=== PATIENT | male | born 1940 | race Caucasian/White ===

== ENCOUNTER 2017-10-09 07:20 | Inpatient (IN) ==
[2017-10-09] MEDS ORDERED: DEXTROSE 50% 25 GM/50 ML SYRINGE IV ONE (07:26)
[2017-10-09 07:50] LABS: Eosinophils # 0.2 10*3/uL (0.0-0.87); Eosinophils % 4.3 % (0.00-10.9); Hematocrit 36.9 VOL% (42.0-52.0); Hemoglobin 11.1 GM/DL (14.0-18.0); Immature Granulocytes % 0.8 %; Immature Granulocytes Absolute 0.04 #; Lymphocytes # 0.5 10*3/uL (1.4-4.0); Lymphocytes % 9.8 % (21.2-54.2); Mean Corpuscular HGB Conc 30.1 GM/DL (32-36); Mean Corpuscular Hemoglobin 26 PG (27-34); Mean Corpuscular Volume 86.2 FL (87-102); Monocytes # 0.3 10*3/uL (0.11-0.8); Monocytes % 6.3 % (1.7-12.7); Neutrophils # 3.9 10*3/uL (1.4-7.4); Neutrophils % 78.8 % (38.7-73.9); Platelet Count 190 T/CUMM (130-400); Red Blood Count 4.28 MC/CUMM (3.8-5.5); Red Cell Distribution Width 21.7 % (9.3-17.3); White Blood Count 4.9 T/CUMM (4-12)
[2017-10-09 08:02] LABS: Apearance,Urine CLEAR (Clear); Bilirubin,Urine Negative (Negative); Blood, Urine Negative (Negative); Glucose,Urine (UA) Negative (Negative); Hyaline Casts,Urine 1 /LPF (0-3); Ketones,Urine Negative (Negative); Mucus,Urine Occasional /LPF (Occasional); Nitrite,Urine Negative (Negative); Protein,Urine Negative; RBC,Urine <1 /HPF (0-4); Urine Color Straw (Yellow); Urine Specific Gravity 1.004 (1.001-1.035); Urine Urobilinogen < 2.0 EU/DL (0.2-1.0); WBC,Urine <1 /HPF (0-6)
[2017-10-09 08:30] LABS: Alanine Aminotransferase 16 U/L (16-61); Albumin 3.2 G/DL (3.4-5.0); Alkaline Phosphatase 80 U/L (45-117); Aspartate Amino Transferase 18 U/L (0-37); Bilirubin,Total < 0.39 MG/DL (0.2-1.0); Blood Urea Nitrogen 24 MG/DL (7-18); Calcium 8.2 MG/DL (8.5-10.1); Glucose 63 MG/DL (74-106); Osmolality,Calculated 282.3 MOS/KG (273-304); Potassium 3.7 MMOL/L (3.5-5.1); Sodium 141 MMOL/L (136-145); Total Protein 5.6 G/DL (6.4-8.3)
[2017-10-09 08:34] LABS: Ammonia < 10 UMOL/L (11-32)
[2017-10-09] MEDS ORDERED: ONDANSETRON 4 MG/2 ML VIAL IV PRN (11:14)
[2017-10-09] MEDS: DEXTROSE 5% NACL 0.22% 1,000 ML IV SCH (18:46)
[2017-10-09] MEDS: levETIRAcetam 500 MG TABLET PO SCH (21:26)
[2017-10-09] MEDS: MORPHINE 2 MG/1 ML SYRINGE IV PRN (21:26)
[2017-10-10] MEDS ORDERED: HALOPERIDOL 5 MG/ML AMP IV ONE ×2 (01:00→03:30)
[2017-10-10] MEDS: MORPHINE 2 MG/1 ML SYRINGE IV PRN ×2 (01:12→08:16)
[2017-10-10] MEDS: DEXTROSE 5% NACL 0.22% 1,000 ML IV SCH (04:04)
[2017-10-10] MEDS ORDERED: HALOPERIDOL 5 MG/ML AMP IV PRN (05:51)
[2017-10-10 06:12] LABS: Eosinophils # 0.1 10*3/uL (0.0-0.87); Eosinophils % 2.3 % (0.00-10.9); Hematocrit 40.3 VOL% (42.0-52.0); Hemoglobin 12.3 GM/DL (14.0-18.0); Immature Granulocytes % 0.6 %; Immature Granulocytes Absolute 0.03 #; Lymphocytes # 0.7 10*3/uL (1.4-4.0); Lymphocytes % 13.6 % (21.2-54.2); Mean Corpuscular HGB Conc 30.5 GM/DL (32-36); Mean Corpuscular Hemoglobin 26 PG (27-34); Mean Corpuscular Volume 83.6 FL (87-102); Mean Platelet Volume 10.5 FL (9.6-12.0); Monocytes # 0.4 10*3/uL (0.11-0.8); Monocytes % 7.6 % (1.7-12.7); Neutrophils % 75.9 % (38.7-73.9); Platelet Count 197 T/CUMM (130-400); Red Blood Count 4.82 MC/CUMM (3.8-5.5); Red Cell Distribution Width 21.4 % (9.3-17.3); White Blood Count 5.2 T/CUMM (4-12)
[2017-10-10 06:52] LABS: Calcium 8.7 MG/DL (8.5-10.1); Osmolality,Calculated 277.7 MOS/KG (273-304); Thyroid Stimulating Hormone 0.556 uIU/ml (0.358-3.74)
[2017-10-10] MEDS ORDERED: ZIPRASIDONE 20 MG/1 ML VIAL IM PRN (09:00)
[2017-10-10] MEDS: levETIRAcetam 500 MG TABLET PO SCH ×2 (10:47→21:57)
[2017-10-10] MEDS ORDERED: hydrALAZINE 20 MG/1 ML VIAL IV PRN (12:11)
[2017-10-10] MEDS ORDERED: HYDROCORTISONE 25 MG SUPP RECTAL PRN (13:45)
[2017-10-10] MEDS ORDERED: NON-FORMULARY MEDICATION (Fluticasone/Vilanterol [Breo Ellipta 200-25 Mcg Inh] 1 PUFF) INH SCH (13:45)
[2017-10-10] MEDS ORDERED: POLYVINYL ALCOHOL 1.4% OPH SOLN 15 ML BOTTLE BOTH EYES PRN (13:45)
[2017-10-10] MEDS: CYANOCOBALAMIN 500 MCG TABLET PO SCH (13:50)
[2017-10-10] MEDS: FINASTERIDE 5 MG TABLET PO SCH (13:50)
[2017-10-10] MEDS: POLYETHYLENE GLYCOL POWDER 17 GM PACK PO SCH ×2 (13:50→21:57)
[2017-10-10] MEDS: fentaNYL 50 MCG/HR PATCH TRANSDERM SCH (13:50)
[2017-10-10] MEDS: TAMSULOSIN 0.4 MG CAPSULE PO SCH ×2 (13:50→21:57)
[2017-10-10] MEDS: FERROUS SULFATE 325 MG TABLET PO SCH ×2 (13:50→21:57)
[2017-10-10] MEDS: FUROSEMIDE 80 MG TABLET PO SCH (13:50)
[2017-10-10] MEDS: cycloSPORINE OPH EMUL 1 VIAL BOTH EYES SCH (13:50)
[2017-10-10] MEDS ORDERED: ALBUTEROL/IPRATROPIUM 3 ML NEB RESP TX PRN ×2 (14:20→14:50)
[2017-10-10] MEDS ORDERED: FUROSEMIDE 40 MG/4 ML VIAL IV ONE ×2 (14:56→18:51)
[2017-10-10] MEDS ORDERED: PROPOFOL 1,000 MG/100 ML BOTTLE IV ONE ×2 (18:13→18:15)
[2017-10-10] MEDS: PROPOFOL 1,000 MG/100 ML BOTTLE IV SCH (19:00)
[2017-10-10] MEDS ORDERED: ALBUTEROL/IPRATROPIUM 3 ML NEB RESP TX SCH (19:00)
[2017-10-10 19:18] LABS: ABG Base Excess 3.2 MMOL/L (-2.5-2.5); ABG HCO3 27.3 MMOL/L (20-26); ABG Oxygen Saturation 99.8 % (95-100); ABG PCO2 51.8 MM HG (35-48); ABG PH 7.365 (7.35-7.45); ABG TCO2 26.4 MMOL/L (23-27); Allen Test Positive; Pt O2 Delivery Device Ventilator
[2017-10-10] MEDS: ALBUTEROL/IPRATROPIUM 3 ML NEB RESP TX SCH (19:19)
[2017-10-10] MEDS ORDERED: FAMOTIDINE 20 MG TABLET PO SCH (21:00)
[2017-10-10] MEDS: FAMOTIDINE 20 MG/2 ML VIAL IV SCH (21:56)
[2017-10-10] MEDS: DONEPEZIL 10 MG TABLET PO SCH (21:57)
[2017-10-10] MEDS: MONTELUKAST 10 MG TABLET PO SCH (21:57)
[2017-10-10] MEDS: MEMANTINE 5 MG TABLET PO SCH (21:57)
[2017-10-10] MEDS: NORTRIPTYLINE 25 MG CAPSULE PO SCH (21:57)
[2017-10-10] MEDS: QUEtiapine 25 MG TABLET PO SCH (21:57)
[2017-10-10] MEDS: HydrOXYzine PAMOATE 25 MG CAPSULE PO SCH (22:03)
[2017-10-11] MEDS: ALBUTEROL/IPRATROPIUM 3 ML NEB RESP TX SCH ×4 (00:26→19:07)
[2017-10-11] MEDS: DEXTROSE 5% NACL 0.22% 1,000 ML IV SCH ×2 (00:46→13:17)
[2017-10-11] MEDS: GABAPENTIN 400 MG CAPSULE PO SCH ×5 (00:47→21:20)
[2017-10-11] MEDS: NORTRIPTYLINE 10 MG CAPSULE PO SCH ×2 (00:49→21:20)
[2017-10-11] MEDS: cycloSPORINE OPH EMUL 1 VIAL BOTH EYES SCH ×3 (00:50→21:20)
[2017-10-11] MEDS: LATANOPROST 0.005% OPH SOLN 2.5 ML BOTTLE BOTH EYES SCH ×2 (00:50→21:21)
[2017-10-11] MEDS: PROPOFOL 1,000 MG/100 ML BOTTLE IV SCH ×3 (02:00→17:55)
[2017-10-11] MEDS: BENZONATATE 100 MG CAPSULE PO SCH ×5 (02:36→21:20)
[2017-10-11] MEDS: MORPHINE 2 MG/1 ML SYRINGE IV PRN (02:39)
[2017-10-11 03:46] LABS: ABG Base Excess 3.1 MMOL/L (-2.5-2.5); ABG HCO3 27.4 MMOL/L (20-26); ABG PCO2 40.9 MM HG (35-48); ABG PH 7.444 (7.35-7.45); ABG PO2 218.9 MM HG (80-95); ABG TCO2 28.7 MMOL/L (23-27); Pt O2 Delivery Device Ventilator
[2017-10-11] MEDS: FAMOTIDINE 20 MG/2 ML VIAL IV SCH ×2 (06:45→17:56)
[2017-10-11 07:11] LABS: ABG Oxygen Saturation 99.5 % (95-100)
[2017-10-11] MEDS ORDERED: DEXTROSE 50% 25 GM/50 ML VIAL IV ONE (07:14)
[2017-10-11] MEDS ORDERED: DEXTROSE 50% 25 GM/50 ML VIAL IV PRN (07:20)
[2017-10-11] MEDS ORDERED: CYANOCOBALAMIN 1000 MCG/1 ML VIAL IM SCH (09:00)
[2017-10-11] MEDS ORDERED: PANTOPRAZOLE 40 MG TABLET PO SCH (09:00)
[2017-10-11] MEDS: POLYETHYLENE GLYCOL POWDER 17 GM PACK PO SCH ×2 (10:18→21:20)
[2017-10-11] MEDS: FERROUS SULFATE 325 MG TABLET PO SCH ×2 (10:19→21:20)
[2017-10-11] MEDS: TAMSULOSIN 0.4 MG CAPSULE PO SCH ×2 (10:19→21:20)
[2017-10-11] MEDS: CYANOCOBALAMIN 500 MCG TABLET PO SCH (10:19)
[2017-10-11] MEDS: FINASTERIDE 5 MG TABLET PO SCH (10:20)
[2017-10-11] MEDS: QUEtiapine 25 MG TABLET PO SCH ×2 (10:20→21:20)
[2017-10-11] MEDS: FUROSEMIDE 80 MG TABLET PO SCH (10:20)
[2017-10-11] MEDS: levETIRAcetam 500 MG TABLET PO SCH ×2 (10:21→21:20)
[2017-10-11] MEDS: MEMANTINE 5 MG TABLET PO SCH ×2 (10:21→21:20)
[2017-10-11] MEDS ORDERED: ZINC OXIDE PASTE 113 GM TUBE TOP PRN (15:31)
[2017-10-11] MEDS: NOREPINEPHRINE 8 MG in SODIUM CHLORIDE 0.9% 242 ML IV SCH (15:41)
[2017-10-11] MEDS: NORTRIPTYLINE 25 MG CAPSULE PO SCH (21:20)
[2017-10-11] MEDS: MONTELUKAST 10 MG TABLET PO SCH (21:20)
[2017-10-11] MEDS: DONEPEZIL 10 MG TABLET PO SCH (21:20)
[2017-10-11] MEDS: HydrOXYzine PAMOATE 25 MG CAPSULE PO SCH (21:21)
[2017-10-12] MEDS: ALBUTEROL/IPRATROPIUM 3 ML NEB RESP TX SCH ×4 (00:34→19:59)
[2017-10-12] MEDS: PROPOFOL 1,000 MG/100 ML BOTTLE IV SCH ×6 (01:00→22:01)
[2017-10-12 04:21] LABS: ABG Base Excess 6.3 MMOL/L (-2.5-2.5); ABG HCO3 30.2 MMOL/L (20-26); ABG Oxygen Saturation 99.6 % (95-100); ABG PCO2 36.9 MM HG (35-48); ABG PH 7.512 (7.35-7.45); ABG TCO2 26.3 MMOL/L (23-27); Allen Test Positive; Pt O2 Delivery Device Ventilator
[2017-10-12] MEDS: DEXTROSE 5% NACL 0.22% 1,000 ML IV SCH ×3 (05:54→19:26)
[2017-10-12] MEDS: FAMOTIDINE 20 MG/2 ML VIAL IV SCH ×2 (06:14→21:48)
[2017-10-12 06:22] LABS: Eosinophils # 0.1 10*3/uL (0.0-0.87); Eosinophils % 0.6 % (0.00-10.9); Hematocrit 34.9 VOL% (42.0-52.0); Hemoglobin 11.3 GM/DL (14.0-18.0); Immature Granulocytes % 0.5 %; Immature Granulocytes Absolute 0.04 #; Lymphocytes # 0.6 10*3/uL (1.4-4.0); Lymphocytes % 7.3 % (21.2-54.2); Mean Corpuscular HGB Conc 32.4 GM/DL (32-36); Mean Corpuscular Hemoglobin 26 PG (27-34); Mean Corpuscular Volume 80.8 FL (87-102); Mean Platelet Volume 11.1 FL (9.6-12.0); Monocytes # 0.7 10*3/uL (0.11-0.8); Monocytes % 8.3 % (1.7-12.7); Neutrophils # 6.5 10*3/uL (1.4-7.4); Neutrophils % 83.3 % (38.7-73.9); Platelet Count 153 T/CUMM (130-400); Red Blood Count 4.32 MC/CUMM (3.8-5.5); Red Cell Distribution Width 20.9 % (9.3-17.3); White Blood Count 7.8 T/CUMM (4-12)
[2017-10-12 06:54] LABS: Calcium 8.5 MG/DL (8.5-10.1); Osmolality,Calculated 278.7 MOS/KG (273-304); Potassium 3.7 MMOL/L (3.5-5.1)
[2017-10-12 06:55] LABS: Albumin 2.8 G/DL (3.4-5.0); Bilirubin,Total 1.1 MG/DL (0.2-1.0); Calcium 8.4 MG/DL (8.5-10.1); Osmolality,Calculated 280.5 MOS/KG (273-304); Potassium 3.7 MMOL/L (3.5-5.1); Total Protein 5.3 G/DL (6.4-8.3)
[2017-10-12] MEDS: FUROSEMIDE 80 MG TABLET PO SCH (08:39)
[2017-10-12] MEDS: METHOCARBAMOL 500 MG TABLET PO PRN ×2 (08:39→14:54)
[2017-10-12] MEDS: MECLIZINE 25 MG TABLET PO PRN (08:39)
[2017-10-12] MEDS: CYANOCOBALAMIN 500 MCG TABLET PO SCH (08:39)
[2017-10-12] MEDS: QUEtiapine 25 MG TABLET PO SCH ×2 (08:40→21:46)
[2017-10-12] MEDS: BENZONATATE 100 MG CAPSULE PO SCH ×3 (08:41→21:45)
[2017-10-12] MEDS: GABAPENTIN 400 MG CAPSULE PO SCH ×3 (08:41→21:45)
[2017-10-12] MEDS: MEMANTINE 5 MG TABLET PO SCH ×2 (08:41→21:46)
[2017-10-12] MEDS: levETIRAcetam 500 MG TABLET PO SCH ×2 (08:41→21:45)
[2017-10-12] MEDS: FINASTERIDE 5 MG TABLET PO SCH (08:41)
[2017-10-12] MEDS: FERROUS SULFATE 325 MG TABLET PO SCH ×2 (08:41→21:46)
[2017-10-12] MEDS: TAMSULOSIN 0.4 MG CAPSULE PO SCH ×2 (08:42→21:46)
[2017-10-12] MEDS ORDERED: ASCORBIC ACID 500 MG TABLET PO SCH (14:00)
[2017-10-12] MEDS: cycloSPORINE OPH EMUL 1 VIAL BOTH EYES SCH ×2 (14:20→21:48)
[2017-10-12] MEDS: POLYETHYLENE GLYCOL POWDER 17 GM PACK PO SCH ×2 (14:20→21:52)
[2017-10-12] MEDS ORDERED: DILTIAZEM 60 MG TABLET PO SCH (15:00)
[2017-10-12] MEDS: fentaNYL 50 MCG/HR PATCH TRANSDERM SCH (15:03)
[2017-10-12] MEDS: NOREPINEPHRINE 8 MG in SODIUM CHLORIDE 0.9% 242 ML IV SCH ×2 (19:19→21:28)
[2017-10-12] MEDS: DONEPEZIL 10 MG TABLET PO SCH (21:45)
[2017-10-12] MEDS: HydrOXYzine PAMOATE 25 MG CAPSULE PO SCH (21:45)
[2017-10-12] MEDS: MONTELUKAST 10 MG TABLET PO SCH (21:45)
[2017-10-12] MEDS: LATANOPROST 0.005% OPH SOLN 2.5 ML BOTTLE BOTH EYES SCH (21:48)
[2017-10-12] MEDS: NORTRIPTYLINE 25 MG CAPSULE PO SCH (21:48)
[2017-10-12] MEDS: NORTRIPTYLINE 10 MG CAPSULE PO SCH (21:52)
[2017-10-13] MEDS: ALBUTEROL/IPRATROPIUM 3 ML NEB RESP TX SCH ×4 (00:10→19:43)
[2017-10-13] MEDS: ACETAMINOPHEN 325 MG TABLET PO PRN ×2 (00:17→23:47)
[2017-10-13] MEDS: DEXTROSE 5% NACL 0.22% 1,000 ML IV SCH ×2 (00:24→04:55)
[2017-10-13 03:09] LABS: ABG Base Excess 5.3 MMOL/L (-2.5-2.5); ABG HCO3 29.2 MMOL/L (20-26); ABG Oxygen Saturation 97.9 % (95-100); ABG PH 7.299 (7.35-7.45); ABG TCO2 30.8 MMOL/L (23-27); Allen Test Positive; Pt O2 Delivery Device Ventilator
[2017-10-13 03:11] LABS: ABG PCO2 69.5 MM HG (35-48)
[2017-10-13] MEDS ORDERED: METOPROLOL TARTRATE 5 MG/5 ML VIAL IV ONE (03:54)
[2017-10-13] MEDS: PROPOFOL 1,000 MG/100 ML BOTTLE IV SCH ×2 (04:14→14:53)
[2017-10-13] MEDS: FAMOTIDINE 20 MG/2 ML VIAL IV SCH ×2 (05:53→22:03)
[2017-10-13 06:15] LABS: ABG Base Excess 6.6 MMOL/L (-2.5-2.5); ABG HCO3 30.4 MMOL/L (20-26); ABG Oxygen Saturation 98.8 % (95-100); ABG PCO2 62.3 MM HG (35-48); ABG PH 7.348 (7.35-7.45); ABG TCO2 30.9 MMOL/L (23-27); Pt O2 Delivery Device Ventilator
[2017-10-13 06:31] LABS: Calcium 8.3 MG/DL (8.5-10.1); Osmolality,Calculated 283.4 MOS/KG (273-304); Potassium 3.9 MMOL/L (3.5-5.1)
[2017-10-13 06:52] LABS: Basophils % 0.1 % (0.0-0.8); Eosinophils % 0.3 % (0.00-10.9); Hematocrit 36.3 VOL% (42.0-52.0); Hemoglobin 11.4 GM/DL (14.0-18.0); Immature Granulocytes % 0.5 %; Immature Granulocytes Absolute 0.04 #; Lymphocytes # 0.4 10*3/uL (1.4-4.0); Lymphocytes % 5.5 % (21.2-54.2); Mean Corpuscular HGB Conc 31.4 GM/DL (32-36); Mean Corpuscular Hemoglobin 27 PG (27-34); Mean Corpuscular Volume 84.2 FL (87-102); Mean Platelet Volume 11.5 FL (9.6-12.0); Monocytes # 0.7 10*3/uL (0.11-0.8); Neutrophils # 6.6 10*3/uL (1.4-7.4); Neutrophils % 84.6 % (38.7-73.9); Platelet Count 120 T/CUMM (130-400); Red Blood Count 4.31 MC/CUMM (3.8-5.5); Red Cell Distribution Width 20.7 % (9.3-17.3); White Blood Count 7.8 T/CUMM (4-12)
[2017-10-13] MEDS: FERROUS SULFATE 325 MG TABLET PO SCH ×2 (08:11→21:51)
[2017-10-13] MEDS: MEMANTINE 5 MG TABLET PO SCH ×2 (08:11→21:51)
[2017-10-13] MEDS: QUEtiapine 25 MG TABLET PO SCH ×2 (08:11→21:51)
[2017-10-13] MEDS: FUROSEMIDE 80 MG TABLET PO SCH (08:12)
[2017-10-13] MEDS: levETIRAcetam 500 MG TABLET PO SCH ×2 (08:18→21:51)
[2017-10-13] MEDS: CYANOCOBALAMIN 500 MCG TABLET PO SCH (08:18)
[2017-10-13] MEDS: POLYETHYLENE GLYCOL POWDER 17 GM PACK PO SCH ×2 (08:18→22:08)
[2017-10-13] MEDS: TAMSULOSIN 0.4 MG CAPSULE PO SCH ×2 (08:18→21:51)
[2017-10-13] MEDS: BENZONATATE 100 MG CAPSULE PO SCH ×3 (08:18→21:50)
[2017-10-13] MEDS: GABAPENTIN 400 MG CAPSULE PO SCH ×3 (08:25→21:50)
[2017-10-13] MEDS: FINASTERIDE 5 MG TABLET PO SCH (08:26)
[2017-10-13] MEDS ORDERED: GLUCAGON 1 MG VIAL IM PRN (12:09)
[2017-10-13] MEDS: INSULIN REGULAR 100 UNIT/ML SUBCUT SCH ×3 (12:46→23:57)
[2017-10-13] MEDS: cycloSPORINE OPH EMUL 1 VIAL BOTH EYES SCH ×2 (12:46→22:10)
[2017-10-13] MEDS: MEROPENEM 1,000 MG in SYRINGE 1 EACH IV SCH ×2 (15:35→23:54)
[2017-10-13] MEDS: NORTRIPTYLINE 10 MG CAPSULE PO SCH (21:50)
[2017-10-13] MEDS: DONEPEZIL 10 MG TABLET PO SCH (21:50)
[2017-10-13] MEDS: NORTRIPTYLINE 25 MG CAPSULE PO SCH (21:50)
[2017-10-13] MEDS: MONTELUKAST 10 MG TABLET PO SCH (21:50)
[2017-10-13] MEDS: HydrOXYzine PAMOATE 25 MG CAPSULE PO SCH (21:51)
[2017-10-13] MEDS: NOREPINEPHRINE 8 MG in SODIUM CHLORIDE 0.9% 242 ML IV SCH (22:07)
[2017-10-13] MEDS: LATANOPROST 0.005% OPH SOLN 2.5 ML BOTTLE BOTH EYES SCH (22:10)
[2017-10-14] MEDS: ALBUTEROL/IPRATROPIUM 3 ML NEB RESP TX SCH ×4 (01:45→20:14)
[2017-10-14 03:22] LABS: ABG Base Excess 5.9 MMOL/L (-2.5-2.5); ABG Oxygen Saturation 98.4 % (95-100); ABG PCO2 53.4 MM HG (35-48); ABG PH 7.396 (7.35-7.45); ABG PO2 141.7 MM HG (80-95); ABG TCO2 33.7 MMOL/L (23-27); Allen Test Positive; Pt O2 Delivery Device Ventilator
[2017-10-14 04:58] LABS: Basophils % 0.1 % (0.0-0.8); Eosinophils % 0.1 % (0.00-10.9); Hematocrit 38.2 VOL% (42.0-52.0); Hemoglobin 11.5 GM/DL (14.0-18.0); Immature Granulocytes % 0.5 %; Immature Granulocytes Absolute 0.05 #; Lymphocytes # 0.4 10*3/uL (1.4-4.0); Lymphocytes % 3.4 % (21.2-54.2); Mean Corpuscular HGB Conc 30.1 GM/DL (32-36); Mean Corpuscular Hemoglobin 26 PG (27-34); Mean Corpuscular Volume 86.6 FL (87-102); Mean Platelet Volume 11.3 FL (9.6-12.0); Monocytes # 0.8 10*3/uL (0.11-0.8); Monocytes % 7.9 % (1.7-12.7); Neutrophils # 9.1 10*3/uL (1.4-7.4); Platelet Count 116 T/CUMM (130-400); Red Blood Count 4.41 MC/CUMM (3.8-5.5); Red Cell Distribution Width 19.9 % (9.3-17.3); White Blood Count 10.4 T/CUMM (4-12)
[2017-10-14 05:33] LABS: Calcium 8.7 MG/DL (8.5-10.1); Osmolality,Calculated 279.8 MOS/KG (273-304); Potassium 3.8 MMOL/L (3.5-5.1)
[2017-10-14 05:41] LABS: Band Neutrophils 1 % (0-10); Hypochromasia 1+; Lymphocytes 5 % (20-55); Segmented Neutrophils 85 % (50-85); Total Cells Counted 100
[2017-10-14 05:42] LABS: Microcytosis 1+; Ovalocytes Few; Platelet Estimate Decreased
[2017-10-14 05:47] LABS: Prealbumin 13.4 MG/DL (20-40)
[2017-10-14] MEDS: INSULIN REGULAR 100 UNIT/ML SUBCUT SCH ×4 (06:34→23:29)
[2017-10-14] MEDS: FAMOTIDINE 20 MG/2 ML VIAL IV SCH ×2 (06:58→18:46)
[2017-10-14] MEDS: DEXTROSE 5% NACL 0.22% 1,000 ML IV SCH ×4 (06:58→21:16)
[2017-10-14] MEDS: MEROPENEM 1,000 MG in SYRINGE 1 EACH IV SCH ×3 (06:59→23:33)
[2017-10-14] MEDS: PROPOFOL 1,000 MG/100 ML BOTTLE IV SCH ×2 (07:54→19:09)
[2017-10-14] MEDS: POLYETHYLENE GLYCOL POWDER 17 GM PACK PO SCH ×2 (09:37→20:28)
[2017-10-14] MEDS: FINASTERIDE 5 MG TABLET PO SCH (09:37)
[2017-10-14] MEDS: QUEtiapine 25 MG TABLET PO SCH ×2 (09:37→20:28)
[2017-10-14] MEDS: BENZONATATE 100 MG CAPSULE PO SCH ×3 (09:37→20:27)
[2017-10-14] MEDS: FUROSEMIDE 80 MG TABLET PO SCH (09:37)
[2017-10-14] MEDS: TAMSULOSIN 0.4 MG CAPSULE PO SCH ×2 (09:38→20:28)
[2017-10-14] MEDS: GABAPENTIN 400 MG CAPSULE PO SCH ×3 (09:38→20:27)
[2017-10-14] MEDS: CYANOCOBALAMIN 500 MCG TABLET PO SCH (09:38)
[2017-10-14] MEDS: levETIRAcetam 500 MG TABLET PO SCH ×2 (09:38→20:28)
[2017-10-14] MEDS: MEMANTINE 5 MG TABLET PO SCH ×2 (09:38→20:27)
[2017-10-14] MEDS: FERROUS SULFATE 325 MG TABLET PO SCH ×2 (09:38→20:27)
[2017-10-14] MEDS: cycloSPORINE OPH EMUL 1 VIAL BOTH EYES SCH ×2 (09:39→20:26)
[2017-10-14] MEDS: fentaNYL 50 MCG/HR PATCH TRANSDERM SCH (14:47)
[2017-10-14] MEDS: HydrOXYzine PAMOATE 25 MG CAPSULE PO SCH (20:26)
[2017-10-14] MEDS: DONEPEZIL 10 MG TABLET PO SCH (20:27)
[2017-10-14] MEDS: NORTRIPTYLINE 10 MG CAPSULE PO SCH (20:27)
[2017-10-14] MEDS: MONTELUKAST 10 MG TABLET PO SCH (20:27)
[2017-10-14] MEDS: NORTRIPTYLINE 25 MG CAPSULE PO SCH (20:27)
[2017-10-14] MEDS: NOREPINEPHRINE 8 MG in SODIUM CHLORIDE 0.9% 242 ML IV SCH (20:28)
[2017-10-14] MEDS: LATANOPROST 0.005% OPH SOLN 2.5 ML BOTTLE BOTH EYES SCH (20:50)
[2017-10-15] MEDS: ALBUTEROL/IPRATROPIUM 3 ML NEB RESP TX SCH ×4 (00:42→18:30)
[2017-10-15 03:48] LABS: ABG Base Excess 9.7 MMOL/L (-2.5-2.5); ABG HCO3 33.5 MMOL/L (20-26); ABG Oxygen Saturation 99.1 % (95-100); ABG PCO2 52.9 MM HG (35-48); ABG PH 7.437 (7.35-7.45)
[2017-10-15 03:50] LABS: Eosinophils # 0.1 10*3/uL (0.0-0.87); Eosinophils % 1.4 % (0.00-10.9); Hematocrit 35.2 VOL% (42.0-52.0); Immature Granulocytes % 0.5 %; Immature Granulocytes Absolute 0.04 #; Lymphocytes # 0.5 10*3/uL (1.4-4.0); Lymphocytes % 7.1 % (21.2-54.2); Mean Corpuscular HGB Conc 31.3 GM/DL (32-36); Mean Corpuscular Hemoglobin 26 PG (27-34); Mean Corpuscular Volume 84.2 FL (87-102); Mean Platelet Volume 12.2 FL (9.6-12.0); Monocytes # 0.7 10*3/uL (0.11-0.8); Platelet Count 110 T/CUMM (130-400); Red Blood Count 4.18 MC/CUMM (3.8-5.5); Red Cell Distribution Width 19.9 % (9.3-17.3); White Blood Count 7.3 T/CUMM (4-12)
[2017-10-15] MEDS: DEXTROSE 5% NACL 0.22% 1,000 ML IV SCH ×3 (03:55→14:39)
[2017-10-15 04:20] LABS: Calcium 8.1 MG/DL (8.5-10.1); Osmolality,Calculated 283.7 MOS/KG (273-304); Potassium 4.1 MMOL/L (3.5-5.1)
[2017-10-15 04:47] LABS: Hypochromasia Slight; Ovalocytes 1+; Platelet Estimate Adequate
[2017-10-15] MEDS: INSULIN REGULAR 100 UNIT/ML SUBCUT SCH ×3 (05:55→18:27)
[2017-10-15] MEDS: FAMOTIDINE 20 MG/2 ML VIAL IV SCH ×2 (06:00→18:35)
[2017-10-15] MEDS: MEROPENEM 1,000 MG in SYRINGE 1 EACH IV SCH ×3 (06:00→23:57)
[2017-10-15] MEDS: PROPOFOL 1,000 MG/100 ML BOTTLE IV SCH ×2 (06:07→18:32)
[2017-10-15] MEDS: QUEtiapine 25 MG TABLET PO SCH ×2 (09:12→20:58)
[2017-10-15] MEDS: TAMSULOSIN 0.4 MG CAPSULE PO SCH ×2 (09:12→20:58)
[2017-10-15] MEDS: FUROSEMIDE 80 MG TABLET PO SCH (09:12)
[2017-10-15] MEDS: CYANOCOBALAMIN 500 MCG TABLET PO SCH (09:12)
[2017-10-15] MEDS: MEMANTINE 5 MG TABLET PO SCH ×2 (09:12→21:00)
[2017-10-15] MEDS: POLYETHYLENE GLYCOL POWDER 17 GM PACK PO SCH ×2 (09:12→20:57)
[2017-10-15] MEDS: FERROUS SULFATE 325 MG TABLET PO SCH ×2 (09:12→20:58)
[2017-10-15] MEDS: BENZONATATE 100 MG CAPSULE PO SCH ×3 (09:14→20:58)
[2017-10-15] MEDS: GABAPENTIN 400 MG CAPSULE PO SCH ×3 (09:14→20:58)
[2017-10-15] MEDS: levETIRAcetam 500 MG TABLET PO SCH ×2 (09:14→20:58)
[2017-10-15] MEDS: FINASTERIDE 5 MG TABLET PO SCH (09:15)
[2017-10-15] MEDS: cycloSPORINE OPH EMUL 1 VIAL BOTH EYES SCH ×2 (09:23→20:59)
[2017-10-15] MEDS: DONEPEZIL 10 MG TABLET PO SCH (20:58)
[2017-10-15] MEDS: NORTRIPTYLINE 10 MG CAPSULE PO SCH (20:58)
[2017-10-15] MEDS: HydrOXYzine PAMOATE 25 MG CAPSULE PO SCH (20:58)
[2017-10-15] MEDS: NORTRIPTYLINE 25 MG CAPSULE PO SCH (20:58)
[2017-10-15] MEDS: LATANOPROST 0.005% OPH SOLN 2.5 ML BOTTLE BOTH EYES SCH (20:59)
[2017-10-15] MEDS: MONTELUKAST 10 MG TABLET PO SCH (21:07)
[2017-10-15] MEDS: NOREPINEPHRINE 8 MG in SODIUM CHLORIDE 0.9% 242 ML IV SCH (21:10)
[2017-10-16] MEDS: ALBUTEROL/IPRATROPIUM 3 ML NEB RESP TX SCH ×4 (00:50→19:36)
[2017-10-16] MEDS: DEXTROSE 5% NACL 0.22% 1,000 ML IV SCH ×3 (02:09→15:31)
[2017-10-16 02:30] LABS: Allen Test Positive; Pt O2 Delivery Device Ventilator
[2017-10-16 02:31] LABS: ABG Base Excess 11.5 MMOL/L (-2.5-2.5); ABG HCO3 35.3 MMOL/L (20-26); ABG Oxygen Saturation 99.4 % (95-100); ABG PCO2 58.2 MM HG (35-48); ABG PH 7.426 (7.35-7.45); ABG TCO2 34.2 MMOL/L (23-27)
[2017-10-16 05:55] LABS: Eosinophils # 0.2 10*3/uL (0.0-0.87); Eosinophils % 2.3 % (0.00-10.9); Hematocrit 36.4 VOL% (42.0-52.0); Hemoglobin 10.8 GM/DL (14.0-18.0); Immature Granulocytes % 0.4 %; Immature Granulocytes Absolute 0.03 #; Lymphocytes # 0.7 10*3/uL (1.4-4.0); Lymphocytes % 10.3 % (21.2-54.2); Mean Corpuscular HGB Conc 29.7 GM/DL (32-36); Mean Corpuscular Hemoglobin 26 PG (27-34); Mean Corpuscular Volume 87.7 FL (87-102); Mean Platelet Volume 11.5 FL (9.6-12.0); Monocytes # 0.8 10*3/uL (0.11-0.8); Monocytes % 11.1 % (1.7-12.7); Neutrophils # 5.3 10*3/uL (1.4-7.4); Neutrophils % 75.9 % (38.7-73.9); Platelet Count 118 T/CUMM (130-400); Red Blood Count 4.15 MC/CUMM (3.8-5.5); Red Cell Distribution Width 19.4 % (9.3-17.3); White Blood Count 6.9 T/CUMM (4-12)
[2017-10-16 06:18] LABS: Calcium 8.6 MG/DL (8.5-10.1); Osmolality,Calculated 282.8 MOS/KG (273-304); Potassium 4.1 MMOL/L (3.5-5.1)
[2017-10-16] MEDS: INSULIN REGULAR 100 UNIT/ML SUBCUT SCH ×5 (06:26→23:40)
[2017-10-16] MEDS: FAMOTIDINE 20 MG/2 ML VIAL IV SCH ×2 (06:38→19:08)
[2017-10-16] MEDS: MEROPENEM 1,000 MG in SYRINGE 1 EACH IV SCH ×3 (06:38→23:43)
[2017-10-16] MEDS: FERROUS SULFATE 325 MG TABLET PO SCH ×2 (09:07→21:46)
[2017-10-16] MEDS: GABAPENTIN 400 MG CAPSULE PO SCH ×3 (09:08→21:47)
[2017-10-16] MEDS: TAMSULOSIN 0.4 MG CAPSULE PO SCH ×2 (09:08→21:46)
[2017-10-16] MEDS: QUEtiapine 25 MG TABLET PO SCH ×2 (09:09→21:47)
[2017-10-16] MEDS: FINASTERIDE 5 MG TABLET PO SCH (09:10)
[2017-10-16] MEDS: MEMANTINE 5 MG TABLET PO SCH ×2 (09:11→21:46)
[2017-10-16] MEDS: levETIRAcetam 500 MG TABLET PO SCH ×2 (09:11→21:46)
[2017-10-16] MEDS: BENZONATATE 100 MG CAPSULE PO SCH ×3 (09:12→21:47)
[2017-10-16] MEDS: FUROSEMIDE 80 MG TABLET PO SCH (09:12)
[2017-10-16] MEDS: POLYETHYLENE GLYCOL POWDER 17 GM PACK PO SCH ×2 (09:13→21:46)
[2017-10-16] MEDS: CYANOCOBALAMIN 500 MCG TABLET PO SCH (09:14)
[2017-10-16] MEDS: cycloSPORINE OPH EMUL 1 VIAL BOTH EYES SCH ×2 (09:35→21:47)
[2017-10-16] MEDS: PROPOFOL 1,000 MG/100 ML BOTTLE IV SCH ×2 (11:02→18:58)
[2017-10-16] MEDS: fentaNYL 50 MCG/HR PATCH TRANSDERM SCH (17:50)
[2017-10-16] MEDS: MORPHINE 10 MG/1 ML VIAL IV PRN (20:33)
[2017-10-16] MEDS: NOREPINEPHRINE 8 MG in SODIUM CHLORIDE 0.9% 242 ML IV SCH (21:34)
[2017-10-16] MEDS: DONEPEZIL 10 MG TABLET PO SCH (21:46)
[2017-10-16] MEDS: HydrOXYzine PAMOATE 25 MG CAPSULE PO SCH (21:46)
[2017-10-16] MEDS: LATANOPROST 0.005% OPH SOLN 2.5 ML BOTTLE BOTH EYES SCH (21:47)
[2017-10-16] MEDS: NORTRIPTYLINE 10 MG CAPSULE PO SCH (21:47)
[2017-10-16] MEDS: MONTELUKAST 10 MG TABLET PO SCH (21:47)
[2017-10-16] MEDS: NORTRIPTYLINE 25 MG CAPSULE PO SCH (21:47)
[2017-10-17] MEDS: ALBUTEROL/IPRATROPIUM 3 ML NEB RESP TX SCH ×4 (00:16→19:56)
[2017-10-17 03:23] LABS: ABG HCO3 39.9 MMOL/L (20-26); ABG Oxygen Saturation 98.1 % (95-100); ABG PCO2 63.6 MM HG (35-48); ABG PH 7.415 (7.35-7.45); ABG PO2 122.1 MM HG (80-95); ABG TCO2 41.8 MMOL/L (23-27)
[2017-10-17] MEDS: MORPHINE 10 MG/1 ML VIAL IV PRN (04:17)
[2017-10-17 04:51] LABS: Basophils % 0.2 % (0.0-0.8); Eosinophils # 0.2 10*3/uL (0.0-0.87); Eosinophils % 2.8 % (0.00-10.9); Hemoglobin 10.7 GM/DL (14.0-18.0); Immature Granulocytes % 0.9 %; Immature Granulocytes Absolute 0.05 #; Lymphocytes # 0.5 10*3/uL (1.4-4.0); Lymphocytes % 9.1 % (21.2-54.2); Mean Corpuscular HGB Conc 30.6 GM/DL (32-36); Mean Corpuscular Hemoglobin 26 PG (27-34); Mean Corpuscular Volume 85.6 FL (87-102); Monocytes # 0.7 10*3/uL (0.11-0.8); Monocytes % 12.5 % (1.7-12.7); Neutrophils # 3.9 10*3/uL (1.4-7.4); Neutrophils % 74.5 % (38.7-73.9); Platelet Count 143 T/CUMM (130-400); Red Blood Count 4.09 MC/CUMM (3.8-5.5); Red Cell Distribution Width 18.7 % (9.3-17.3); White Blood Count 5.3 T/CUMM (4-12)
[2017-10-17] MEDS: PROPOFOL 1,000 MG/100 ML BOTTLE IV SCH ×2 (05:01→17:56)
[2017-10-17] MEDS: DEXTROSE 5% NACL 0.22% 1,000 ML IV SCH ×3 (05:08→18:20)
[2017-10-17 05:34] LABS: Calcium 8.2 MG/DL (8.5-10.1); Osmolality,Calculated 288.5 MOS/KG (273-304); Potassium 4.5 MMOL/L (3.5-5.1); Prealbumin 13.6 MG/DL (20-40)
[2017-10-17] MEDS: INSULIN REGULAR 100 UNIT/ML SUBCUT SCH ×3 (05:42→17:56)
[2017-10-17] MEDS: FAMOTIDINE 20 MG/2 ML VIAL IV SCH ×2 (07:06→18:32)
[2017-10-17] MEDS: MEROPENEM 1,000 MG in SYRINGE 1 EACH IV SCH ×2 (07:06→16:38)
[2017-10-17] MEDS: TAMSULOSIN 0.4 MG CAPSULE PO SCH ×2 (08:07→22:37)
[2017-10-17] MEDS: POLYETHYLENE GLYCOL POWDER 17 GM PACK PO SCH ×2 (08:13→22:40)
[2017-10-17] MEDS: GABAPENTIN 400 MG CAPSULE PO SCH ×3 (08:13→22:36)
[2017-10-17] MEDS: levETIRAcetam 500 MG TABLET PO SCH ×2 (08:13→22:36)
[2017-10-17] MEDS: FINASTERIDE 5 MG TABLET PO SCH (08:14)
[2017-10-17] MEDS: MEMANTINE 5 MG TABLET PO SCH ×2 (08:14→22:35)
[2017-10-17] MEDS: CYANOCOBALAMIN 500 MCG TABLET PO SCH (08:14)
[2017-10-17] MEDS: FERROUS SULFATE 325 MG TABLET PO SCH ×2 (08:14→22:35)
[2017-10-17] MEDS: BENZONATATE 100 MG CAPSULE PO SCH ×3 (08:14→22:38)
[2017-10-17] MEDS: FUROSEMIDE 80 MG TABLET PO SCH (08:14)
[2017-10-17] MEDS: QUEtiapine 25 MG TABLET PO SCH ×2 (08:16→22:38)
[2017-10-17] MEDS: cycloSPORINE OPH EMUL 1 VIAL BOTH EYES SCH ×2 (08:34→22:47)
[2017-10-17 11:48] LABS: ABG Base Excess 12.8 MMOL/L (-2.5-2.5); ABG HCO3 36.6 MMOL/L (20-26); ABG Oxygen Saturation 98.6 % (95-100); ABG PH 7.361 (7.35-7.45); ABG TCO2 37.5 MMOL/L (23-27); Allen Test Positive
[2017-10-17 11:49] LABS: ABG PCO2 73.4 MM HG (35-48)
[2017-10-17] MEDS: DONEPEZIL 10 MG TABLET PO SCH (22:35)
[2017-10-17] MEDS: MONTELUKAST 10 MG TABLET PO SCH (22:35)
[2017-10-17] MEDS: NORTRIPTYLINE 25 MG CAPSULE PO SCH (22:38)
[2017-10-17] MEDS: HydrOXYzine PAMOATE 25 MG CAPSULE PO SCH (22:40)
[2017-10-17] MEDS: LATANOPROST 0.005% OPH SOLN 2.5 ML BOTTLE BOTH EYES SCH (22:47)
[2017-10-18] MEDS: ALBUTEROL/IPRATROPIUM 3 ML NEB RESP TX SCH ×4 (00:59→19:27)
[2017-10-18 03:47] LABS: ABG Base Excess 11.9 MMOL/L (-2.5-2.5); ABG HCO3 35.7 MMOL/L (20-26); ABG Oxygen Saturation 99.5 % (95-100); ABG PCO2 56.3 MM HG (35-48); ABG PH 7.439 (7.35-7.45); ABG TCO2 34.5 MMOL/L (23-27)
[2017-10-18 04:51] LABS: Basophils % 0.2 % (0.0-0.8); Eosinophils # 0.1 10*3/uL (0.0-0.87); Hematocrit 33.8 VOL% (42.0-52.0); Hemoglobin 10.2 GM/DL (14.0-18.0); Immature Granulocytes % 0.9 %; Immature Granulocytes Absolute 0.06 #; Lymphocytes # 0.7 10*3/uL (1.4-4.0); Lymphocytes % 10.3 % (21.2-54.2); Mean Corpuscular HGB Conc 30.2 GM/DL (32-36); Mean Corpuscular Hemoglobin 26 PG (27-34); Mean Corpuscular Volume 86.2 FL (87-102); Monocytes # 0.8 10*3/uL (0.11-0.8); Monocytes % 12.6 % (1.7-12.7); Neutrophils # 4.8 10*3/uL (1.4-7.4); Platelet Count 147 T/CUMM (130-400); Red Blood Count 3.92 MC/CUMM (3.8-5.5); Red Cell Distribution Width 18.6 % (9.3-17.3); White Blood Count 6.4 T/CUMM (4-12)
[2017-10-18 05:06] LABS: PT Patient Result 10.7 SECS; Partial Thromboplastin Time 31.4 SECS (0-40)
[2017-10-18 05:19] LABS: Calcium 8.5 MG/DL (8.5-10.1); Osmolality,Calculated 278.2 MOS/KG (273-304); Potassium 4.4 MMOL/L (3.5-5.1)
[2017-10-18] MEDS: INSULIN REGULAR 100 UNIT/ML SUBCUT SCH ×5 (06:50→23:48)
[2017-10-18] MEDS: FAMOTIDINE 20 MG/2 ML VIAL IV SCH ×2 (06:57→18:20)
[2017-10-18] MEDS: MEROPENEM 1,000 MG in SYRINGE 1 EACH IV SCH ×4 (07:06→23:37)
[2017-10-18] MEDS: BENZONATATE 100 MG CAPSULE PO SCH ×3 (09:33→20:22)
[2017-10-18] MEDS: MEMANTINE 5 MG TABLET PO SCH ×2 (09:33→20:13)
[2017-10-18] MEDS: QUEtiapine 25 MG TABLET PO SCH ×2 (09:33→20:21)
[2017-10-18] MEDS: POLYETHYLENE GLYCOL POWDER 17 GM PACK PO SCH ×2 (09:33→20:14)
[2017-10-18] MEDS: levETIRAcetam 500 MG TABLET PO SCH ×2 (09:34→20:14)
[2017-10-18] MEDS: FUROSEMIDE 80 MG TABLET PO SCH (09:34)
[2017-10-18] MEDS: GABAPENTIN 400 MG CAPSULE PO SCH ×3 (09:34→20:13)
[2017-10-18] MEDS: FERROUS SULFATE 325 MG TABLET PO SCH ×2 (09:34→20:13)
[2017-10-18] MEDS: FINASTERIDE 5 MG TABLET PO SCH (09:34)
[2017-10-18] MEDS: TAMSULOSIN 0.4 MG CAPSULE PO SCH ×2 (09:34→20:13)
[2017-10-18] MEDS: cycloSPORINE OPH EMUL 1 VIAL BOTH EYES SCH ×2 (09:35→20:29)
[2017-10-18] MEDS: DEXTROSE 5% NACL 0.22% 1,000 ML IV SCH ×2 (09:35→22:27)
[2017-10-18] MEDS: PROPOFOL 1,000 MG/100 ML BOTTLE IV SCH (09:36)
[2017-10-18] MEDS: MORPHINE 10 MG/1 ML VIAL IV PRN (10:25)
[2017-10-18] MEDS: DONEPEZIL 10 MG TABLET PO SCH (20:17)
[2017-10-18] MEDS: MONTELUKAST 10 MG TABLET PO SCH (20:21)
[2017-10-18] MEDS: NORTRIPTYLINE 25 MG CAPSULE PO SCH (20:22)
[2017-10-18] MEDS: HydrOXYzine PAMOATE 25 MG CAPSULE PO SCH (20:22)
[2017-10-18] MEDS: LATANOPROST 0.005% OPH SOLN 2.5 ML BOTTLE BOTH EYES SCH (20:29)
[2017-10-19] MEDS: ALBUTEROL/IPRATROPIUM 3 ML NEB RESP TX SCH ×4 (01:40→19:51)
[2017-10-19 03:36] LABS: ABG Base Excess 10.2 MMOL/L (-2.5-2.5); ABG HCO3 35.5 MMOL/L (20-26); ABG Oxygen Saturation 98.7 % (95-100); ABG PCO2 50.9 MM HG (35-48); ABG PH 7.461 (7.35-7.45); ABG PO2 183.7 MM HG (80-95); Allen Test Positive; Pt O2 Delivery Device Ventilator
[2017-10-19 04:40] LABS: Eosinophils # 0.2 10*3/uL (0.0-0.87); Eosinophils % 3.1 % (0.00-10.9); Hematocrit 32.4 VOL% (42.0-52.0); Hemoglobin 10.4 GM/DL (14.0-18.0); Immature Granulocytes % 1.2 %; Immature Granulocytes Absolute 0.06 #; Lymphocytes # 0.6 10*3/uL (1.4-4.0); Lymphocytes % 11.5 % (21.2-54.2); Mean Corpuscular HGB Conc 32.1 GM/DL (32-36); Mean Corpuscular Hemoglobin 27 PG (27-34); Mean Corpuscular Volume 83.3 FL (87-102); Mean Platelet Volume 11.4 FL (9.6-12.0); Monocytes # 0.7 10*3/uL (0.11-0.8); Monocytes % 13.7 % (1.7-12.7); Neutrophils # 3.6 10*3/uL (1.4-7.4); Neutrophils % 70.5 % (38.7-73.9); Platelet Count 167 T/CUMM (130-400); Red Blood Count 3.89 MC/CUMM (3.8-5.5); Red Cell Distribution Width 18.3 % (9.3-17.3); White Blood Count 5.1 T/CUMM (4-12)
[2017-10-19] MEDS: PROPOFOL 1,000 MG/100 ML BOTTLE IV SCH ×2 (04:48→12:29)
[2017-10-19 05:08] LABS: Calcium 8.3 MG/DL (8.5-10.1); Osmolality,Calculated 279.2 MOS/KG (273-304); Potassium 4.1 MMOL/L (3.5-5.1)
[2017-10-19] MEDS: INSULIN REGULAR 100 UNIT/ML SUBCUT SCH ×3 (05:39→19:06)
[2017-10-19] MEDS: FAMOTIDINE 20 MG/2 ML VIAL IV SCH ×2 (06:32→19:09)
[2017-10-19] MEDS: MEROPENEM 1,000 MG in SYRINGE 1 EACH IV SCH ×3 (06:37→23:51)
[2017-10-19] MEDS: cycloSPORINE OPH EMUL 1 VIAL BOTH EYES SCH ×2 (10:50→21:40)
[2017-10-19] MEDS: FINASTERIDE 5 MG TABLET PO SCH (10:50)
[2017-10-19] MEDS: FERROUS SULFATE 325 MG TABLET PO SCH ×2 (10:50→21:38)
[2017-10-19] MEDS: FUROSEMIDE 80 MG TABLET PO SCH (10:50)
[2017-10-19] MEDS: QUEtiapine 25 MG TABLET PO SCH ×2 (10:50→21:39)
[2017-10-19] MEDS: GABAPENTIN 400 MG CAPSULE PO SCH ×3 (10:50→21:38)
[2017-10-19] MEDS: TAMSULOSIN 0.4 MG CAPSULE PO SCH ×2 (10:50→21:15)
[2017-10-19] MEDS: BENZONATATE 100 MG CAPSULE PO SCH ×3 (10:50→21:38)
[2017-10-19] MEDS: levETIRAcetam 500 MG TABLET PO SCH ×2 (10:50→21:38)
[2017-10-19] MEDS: MEMANTINE 5 MG TABLET PO SCH ×2 (11:01→21:38)
[2017-10-19] MEDS: POLYETHYLENE GLYCOL POWDER 17 GM PACK PO SCH ×2 (11:07→21:39)
[2017-10-19] MEDS: DEXTROSE 5% NACL 0.22% 1,000 ML IV SCH (11:10)
[2017-10-19] MEDS: MONTELUKAST 10 MG TABLET PO SCH (21:38)
[2017-10-19] MEDS: HydrOXYzine PAMOATE 25 MG CAPSULE PO SCH (21:38)
[2017-10-19] MEDS: NORTRIPTYLINE 25 MG CAPSULE PO SCH (21:38)
[2017-10-19] MEDS: DONEPEZIL 10 MG TABLET PO SCH (21:38)
[2017-10-19] MEDS: LATANOPROST 0.005% OPH SOLN 2.5 ML BOTTLE BOTH EYES SCH (21:41)
[2017-10-20] MEDS: INSULIN REGULAR 100 UNIT/ML SUBCUT SCH ×4 (00:12→18:32)
[2017-10-20] MEDS: ALBUTEROL/IPRATROPIUM 3 ML NEB RESP TX SCH ×4 (00:50→19:45)
[2017-10-20] MEDS: DEXTROSE 5% NACL 0.22% 1,000 ML IV SCH ×2 (01:35→15:32)
[2017-10-20] MEDS: PROPOFOL 1,000 MG/100 ML BOTTLE IV SCH ×2 (01:53→11:44)
[2017-10-20 03:02] LABS: ABG HCO3 32.8 MMOL/L (20-26); ABG Oxygen Saturation 99.4 % (95-100); ABG PCO2 49.5 MM HG (35-48)
[2017-10-20] MEDS: FAMOTIDINE 20 MG/2 ML VIAL IV SCH ×2 (06:23→18:33)
[2017-10-20] MEDS: MEROPENEM 1,000 MG in SYRINGE 1 EACH IV SCH ×2 (06:23→15:47)
[2017-10-20 06:48] LABS: Eosinophils # 0.1 10*3/uL (0.0-0.87); Eosinophils % 2.2 % (0.00-10.9); Hematocrit 35.3 VOL% (42.0-52.0); Hemoglobin 10.8 GM/DL (14.0-18.0); Lymphocytes # 0.5 10*3/uL (1.4-4.0); Lymphocytes % 10.5 % (21.2-54.2); Mean Corpuscular HGB Conc 30.6 GM/DL (32-36); Mean Corpuscular Hemoglobin 26 PG (27-34); Mean Corpuscular Volume 85.1 FL (87-102); Mean Platelet Volume 11.5 FL (9.6-12.0); Monocytes # 0.6 10*3/uL (0.11-0.8); Monocytes % 11.9 % (1.7-12.7); Neutrophils # 3.6 10*3/uL (1.4-7.4); Neutrophils % 73.4 % (38.7-73.9); Platelet Count 186 T/CUMM (130-400); Red Blood Count 4.15 MC/CUMM (3.8-5.5); Red Cell Distribution Width 18.3 % (9.3-17.3)
[2017-10-20 07:10] LABS: Calcium 8.4 MG/DL (8.5-10.1); Potassium 3.9 MMOL/L (3.5-5.1)
[2017-10-20] MEDS: LATANOPROST 0.005% OPH SOLN 2.5 ML BOTTLE BOTH EYES SCH ×2 (10:00→21:48)
[2017-10-20] MEDS: BENZONATATE 100 MG CAPSULE PO SCH ×3 (11:05→21:38)
[2017-10-20] MEDS: cycloSPORINE OPH EMUL 1 VIAL BOTH EYES SCH ×2 (11:05→21:48)
[2017-10-20] MEDS: FINASTERIDE 5 MG TABLET PO SCH (11:08)
[2017-10-20] MEDS: TAMSULOSIN 0.4 MG CAPSULE PO SCH ×2 (11:08→21:34)
[2017-10-20] MEDS: FERROUS SULFATE 325 MG TABLET PO SCH ×2 (11:08→21:46)
[2017-10-20] MEDS: GABAPENTIN 400 MG CAPSULE PO SCH ×3 (11:08→21:46)
[2017-10-20] MEDS: levETIRAcetam 500 MG TABLET PO SCH ×2 (11:08→21:46)
[2017-10-20] MEDS: FUROSEMIDE 80 MG TABLET PO SCH (11:08)
[2017-10-20] MEDS: POLYETHYLENE GLYCOL POWDER 17 GM PACK PO SCH ×3 (11:08→21:47)
[2017-10-20] MEDS: MEMANTINE 5 MG TABLET PO SCH ×2 (11:43→21:46)
[2017-10-20] MEDS: QUEtiapine 25 MG TABLET PO SCH (16:13)
[2017-10-20] MEDS: MONTELUKAST 10 MG TABLET PO SCH (21:46)
[2017-10-20] MEDS: DONEPEZIL 10 MG TABLET PO SCH (21:46)
[2017-10-20] MEDS: HydrOXYzine PAMOATE 25 MG CAPSULE PO SCH (21:46)
[2017-10-20] MEDS: NORTRIPTYLINE 25 MG CAPSULE PO SCH (21:46)
[2017-10-21] MEDS: ALBUTEROL/IPRATROPIUM 3 ML NEB RESP TX SCH ×4 (00:05→19:38)
[2017-10-21] MEDS: INSULIN REGULAR 100 UNIT/ML SUBCUT SCH ×4 (00:22→17:55)
[2017-10-21] MEDS: MEROPENEM 1,000 MG in SYRINGE 1 EACH IV SCH ×3 (01:07→16:14)
[2017-10-21 04:16] LABS: ABG Base Excess 1.7 MMOL/L (-2.5-2.5); ABG Oxygen Saturation 98.9 % (95-100); ABG PCO2 38.1 MM HG (35-48); ABG PH 7.439 (7.35-7.45); ABG TCO2 23.1 MMOL/L (23-27)
[2017-10-21] MEDS: PROPOFOL 1,000 MG/100 ML BOTTLE IV SCH ×2 (05:14→21:20)
[2017-10-21] MEDS: DEXTROSE 5% NACL 0.22% 1,000 ML IV SCH ×2 (06:03→17:56)
[2017-10-21] MEDS: FAMOTIDINE 20 MG/2 ML VIAL IV SCH ×2 (06:13→20:21)
[2017-10-21 07:19] LABS: Eosinophils # 0.1 10*3/uL (0.0-0.87); Eosinophils % 1.3 % (0.00-10.9); Hematocrit 37.3 VOL% (42.0-52.0); Hemoglobin 11.7 GM/DL (14.0-18.0); Immature Granulocytes % 1.6 %; Immature Granulocytes Absolute 0.09 #; Lymphocytes # 0.6 10*3/uL (1.4-4.0); Lymphocytes % 10.8 % (21.2-54.2); Mean Corpuscular HGB Conc 31.4 GM/DL (32-36); Mean Corpuscular Hemoglobin 27 PG (27-34); Mean Corpuscular Volume 84.8 FL (87-102); Mean Platelet Volume 10.5 FL (9.6-12.0); Monocytes # 0.5 10*3/uL (0.11-0.8); Monocytes % 9.7 % (1.7-12.7); Neutrophils # 4.2 10*3/uL (1.4-7.4); Neutrophils % 76.6 % (38.7-73.9); Platelet Count 209 T/CUMM (130-400); Red Cell Distribution Width 18.2 % (9.3-17.3); White Blood Count 5.5 T/CUMM (4-12)
[2017-10-21 07:19] LABS: ABG HCO3 31.7 MMOL/L (20-26); ABG Oxygen Saturation 97.8 % (95-100); ABG PCO2 50.5 MM HG (35-48); ABG PH 7.415 (7.35-7.45); ABG PO2 116.2 MM HG (80-95); ABG TCO2 33.2 MMOL/L (23-27); Allen Test Positive
[2017-10-21 07:51] LABS: Calcium 8.3 MG/DL (8.5-10.1); Osmolality,Calculated 284.4 MOS/KG (273-304); Potassium 3.6 MMOL/L (3.5-5.1)
[2017-10-21] MEDS: BENZONATATE 100 MG CAPSULE PO SCH ×3 (09:06→20:48)
[2017-10-21] MEDS: FINASTERIDE 5 MG TABLET PO SCH (09:06)
[2017-10-21] MEDS: MEMANTINE 5 MG TABLET PO SCH ×2 (09:06→20:19)
[2017-10-21] MEDS: TAMSULOSIN 0.4 MG CAPSULE PO SCH ×2 (09:06→20:18)
[2017-10-21] MEDS: FERROUS SULFATE 325 MG TABLET PO SCH ×2 (09:06→20:19)
[2017-10-21] MEDS: levETIRAcetam 500 MG TABLET PO SCH ×2 (09:06→20:19)
[2017-10-21] MEDS: FUROSEMIDE 80 MG TABLET PO SCH (09:06)
[2017-10-21] MEDS: cycloSPORINE OPH EMUL 1 VIAL BOTH EYES SCH ×2 (09:09→20:21)
[2017-10-21] MEDS: fentaNYL 25 MCG/HR PATCH TRANSDERM SCH (09:49)
[2017-10-21 10:09] LABS: ABG Base Excess 5.8 MMOL/L (-2.5-2.5); ABG HCO3 29.5 MMOL/L (20-26); ABG Oxygen Saturation 92.3 % (95-100); ABG PH 7.435 (7.35-7.45); ABG PO2 66.3 MM HG (80-95); ABG TCO2 27.4 MMOL/L (23-27); Allen Test Positive; Pt O2 Delivery Device Other
[2017-10-21] MEDS: POLYETHYLENE GLYCOL POWDER 17 GM PACK PO SCH ×2 (11:20→20:19)
[2017-10-21] MEDS: GABAPENTIN 400 MG CAPSULE PO SCH ×3 (11:20→20:19)
[2017-10-21] MEDS: HydrOXYzine PAMOATE 25 MG CAPSULE PO SCH (20:18)
[2017-10-21] MEDS: MONTELUKAST 10 MG TABLET PO SCH (20:19)
[2017-10-21] MEDS: NORTRIPTYLINE 25 MG CAPSULE PO SCH (20:19)
[2017-10-21] MEDS: DONEPEZIL 10 MG TABLET PO SCH (20:19)
[2017-10-21] MEDS: LATANOPROST 0.005% OPH SOLN 2.5 ML BOTTLE BOTH EYES SCH (20:48)
[2017-10-22] MEDS: ALBUTEROL/IPRATROPIUM 3 ML NEB RESP TX SCH ×4 (00:02→20:15)
[2017-10-22] MEDS: INSULIN REGULAR 100 UNIT/ML SUBCUT SCH ×4 (00:26→18:26)
[2017-10-22] MEDS: MEROPENEM 1,000 MG in SYRINGE 1 EACH IV SCH ×3 (00:35→14:21)
[2017-10-22 02:52] LABS: ABG Base Excess 5.9 MMOL/L (-2.5-2.5); ABG HCO3 29.7 MMOL/L (20-26); ABG PCO2 46.7 MM HG (35-48); ABG PH 7.432 (7.35-7.45); ABG PO2 92.4 MM HG (80-95); ABG TCO2 27.6 MMOL/L (23-27)
[2017-10-22] MEDS: DEXTROSE 5% NACL 0.22% 1,000 ML IV SCH ×3 (05:40→21:52)
[2017-10-22] MEDS: FAMOTIDINE 20 MG/2 ML VIAL IV SCH ×2 (06:38→18:28)
[2017-10-22] MEDS: BENZONATATE 100 MG CAPSULE PO SCH ×3 (08:31→21:59)
[2017-10-22] MEDS: FERROUS SULFATE 325 MG TABLET PO SCH ×2 (08:31→21:52)
[2017-10-22] MEDS: MECLIZINE 25 MG TABLET PO PRN (08:31)
[2017-10-22] MEDS: TAMSULOSIN 0.4 MG CAPSULE PO SCH ×2 (08:32→21:59)
[2017-10-22] MEDS: GABAPENTIN 400 MG CAPSULE PO SCH ×3 (08:32→21:52)
[2017-10-22] MEDS: FINASTERIDE 5 MG TABLET PO SCH (08:32)
[2017-10-22] MEDS: POLYETHYLENE GLYCOL POWDER 17 GM PACK PO SCH ×2 (08:32→21:51)
[2017-10-22] MEDS: MEMANTINE 5 MG TABLET PO SCH ×2 (08:32→21:59)
[2017-10-22] MEDS: levETIRAcetam 500 MG TABLET PO SCH ×2 (08:32→21:52)
[2017-10-22] MEDS: cycloSPORINE OPH EMUL 1 VIAL BOTH EYES SCH ×2 (08:33→22:00)
[2017-10-22] MEDS: FUROSEMIDE 80 MG TABLET PO SCH (08:37)
[2017-10-22] MEDS ORDERED: METHOCARBAMOL 500 MG TABLET PO PRN (08:41)
[2017-10-22 08:42] LABS: Calcium 8.2 MG/DL (8.5-10.1); Osmolality,Calculated 285.3 MOS/KG (273-304); Potassium 3.6 MMOL/L (3.5-5.1)
[2017-10-22] MEDS: CALCIUM (CARBONATE)/VITAMIN D 600 MG-400 UNIT TABLET PO SCH ×2 (09:41→21:52)
[2017-10-22] MEDS: POTASSIUM CHLORIDE 20 MEQ/15 ML UDCUP PER TUBE PRN (17:20)
[2017-10-22] MEDS: HydrOXYzine PAMOATE 25 MG CAPSULE PO SCH (21:52)
[2017-10-22] MEDS: NORTRIPTYLINE 25 MG CAPSULE PO SCH (21:52)
[2017-10-22] MEDS: DONEPEZIL 10 MG TABLET PO SCH (21:52)
[2017-10-22] MEDS: MONTELUKAST 10 MG TABLET PO SCH (21:52)
[2017-10-22] MEDS: LATANOPROST 0.005% OPH SOLN 2.5 ML BOTTLE BOTH EYES SCH (22:00)
[2017-10-22] MEDS ORDERED: DILTIAZEM INJ 100 MG in SODIUM CHLORIDE 0.9% 100 ML IV SCH (23:45)
[2017-10-23] MEDS: INSULIN REGULAR 100 UNIT/ML SUBCUT SCH ×4 (00:21→17:49)
[2017-10-23] MEDS: MEROPENEM 1,000 MG in SYRINGE 1 EACH IV SCH ×3 (00:40→15:27)
[2017-10-23] MEDS: DEXTROSE 5% NACL 0.22% 1,000 ML IV SCH ×2 (00:42→15:25)
[2017-10-23] MEDS: ALBUTEROL/IPRATROPIUM 3 ML NEB RESP TX SCH ×4 (01:52→20:20)
[2017-10-23 04:09] LABS: ABG Base Excess 3.8 MMOL/L (-2.5-2.5); ABG HCO3 27.7 MMOL/L (20-26); ABG PCO2 46.7 MM HG (35-48); ABG PH 7.408 (7.35-7.45); ABG PO2 80.4 MM HG (80-95); ABG TCO2 25.2 MMOL/L (23-27); Allen Test Positive
[2017-10-23 04:52] LABS: Basophils % 0.1 % (0.0-0.8); Eosinophils % 0.4 % (0.00-10.9); Hematocrit 37.6 VOL% (42.0-52.0); Hemoglobin 11.4 GM/DL (14.0-18.0); Immature Granulocytes Absolute 0.07 #; Lymphocytes # 0.4 10*3/uL (1.4-4.0); Lymphocytes % 5.1 % (21.2-54.2); Mean Corpuscular HGB Conc 30.3 GM/DL (32-36); Mean Corpuscular Hemoglobin 26 PG (27-34); Mean Corpuscular Volume 84.7 FL (87-102); Monocytes # 0.4 10*3/uL (0.11-0.8); Monocytes % 6.2 % (1.7-12.7); Neutrophils # 6.2 10*3/uL (1.4-7.4); Neutrophils % 87.2 % (38.7-73.9); Platelet Count 242 T/CUMM (130-400); Red Blood Count 4.44 MC/CUMM (3.8-5.5); Red Cell Distribution Width 18.1 % (9.3-17.3); White Blood Count 7.1 T/CUMM (4-12)
[2017-10-23 05:21] LABS: Albumin 2.5 G/DL (3.4-5.0); Bilirubin,Total 0.5 MG/DL (0.2-1.0); Calcium 8.9 MG/DL (8.5-10.1); Total Protein 5.7 G/DL (6.4-8.3)
[2017-10-23 05:22] LABS: Osmolality,Calculated 278.8 MOS/KG (273-304); Potassium 3.6 MMOL/L (3.5-5.1)
[2017-10-23] MEDS: FAMOTIDINE 20 MG/2 ML VIAL IV SCH ×2 (06:23→17:52)
[2017-10-23] MEDS: POTASSIUM CHLORIDE 20 MEQ/15 ML UDCUP PER TUBE PRN ×2 (06:24→08:48)
[2017-10-23] MEDS ORDERED: DILTIAZEM CD 240 MG CAPSULE PO ONE (08:29)
[2017-10-23] MEDS: levETIRAcetam 500 MG TABLET PO SCH ×2 (08:52→22:08)
[2017-10-23] MEDS: FUROSEMIDE 20 MG TABLET PO SCH (08:52)
[2017-10-23] MEDS: POLYETHYLENE GLYCOL POWDER 17 GM PACK PO SCH ×2 (08:54→22:07)
[2017-10-23] MEDS: MEMANTINE 5 MG TABLET PO SCH ×2 (08:57→22:07)
[2017-10-23] MEDS: TAMSULOSIN 0.4 MG CAPSULE PO SCH ×2 (08:57→22:08)
[2017-10-23] MEDS: FERROUS SULFATE 325 MG TABLET PO SCH ×2 (09:43→22:07)
[2017-10-23] MEDS: CALCIUM (CARBONATE)/VITAMIN D 600 MG-400 UNIT TABLET PO SCH ×2 (09:43→22:07)
[2017-10-23] MEDS: GABAPENTIN 400 MG CAPSULE PO SCH ×2 (09:43→22:08)
[2017-10-23] MEDS: FINASTERIDE 5 MG TABLET PO SCH (09:44)
[2017-10-23] MEDS: cycloSPORINE OPH EMUL 1 VIAL BOTH EYES SCH ×2 (12:44→22:00)
[2017-10-23] MEDS: BENZONATATE 100 MG CAPSULE PO SCH ×3 (12:44→22:07)
[2017-10-23] MEDS: LATANOPROST 0.005% OPH SOLN 2.5 ML BOTTLE BOTH EYES SCH (22:00)
[2017-10-23] MEDS: NORTRIPTYLINE 25 MG CAPSULE PO SCH (22:07)
[2017-10-23] MEDS: DONEPEZIL 10 MG TABLET PO SCH (22:07)
[2017-10-23] MEDS: MONTELUKAST 10 MG TABLET PO SCH (22:08)
[2017-10-24] MEDS: ALBUTEROL/IPRATROPIUM 3 ML NEB RESP TX SCH ×4 (02:01→19:43)
[2017-10-24] MEDS: MEROPENEM 1,000 MG in SYRINGE 1 EACH IV SCH ×3 (02:19→16:31)
[2017-10-24] MEDS: INSULIN REGULAR 100 UNIT/ML SUBCUT SCH ×4 (02:19→19:16)
[2017-10-24] MEDS: DEXTROSE 5% NACL 0.22% 1,000 ML IV SCH ×2 (02:20→10:01)
[2017-10-24 03:00] LABS: ABG Base Excess 3.4 MMOL/L (-2.5-2.5); ABG HCO3 28.6 MMOL/L (20-26); ABG Oxygen Saturation 93.9 % (95-100); ABG PH 7.412 (7.35-7.45); ABG PO2 74.9 MM HG (80-95); Allen Test Positive; Pt O2 Delivery Device CPAP
[2017-10-24] MEDS: FAMOTIDINE 20 MG/2 ML VIAL IV SCH ×2 (06:39→19:17)
[2017-10-24] MEDS: POLYETHYLENE GLYCOL POWDER 17 GM PACK PO SCH ×2 (09:58→21:41)
[2017-10-24] MEDS: TAMSULOSIN 0.4 MG CAPSULE PO SCH ×2 (09:59→21:41)
[2017-10-24] MEDS: fentaNYL 25 MCG/HR PATCH TRANSDERM SCH (09:59)
[2017-10-24] MEDS: DILTIAZEM CD 240 MG CAPSULE PO SCH (09:59)
[2017-10-24] MEDS: BENZONATATE 100 MG CAPSULE PO SCH ×3 (09:59→21:40)
[2017-10-24] MEDS: FINASTERIDE 5 MG TABLET PO SCH (09:59)
[2017-10-24] MEDS: levETIRAcetam 500 MG TABLET PO SCH ×2 (09:59→21:41)
[2017-10-24] MEDS: GABAPENTIN 400 MG CAPSULE PO SCH ×2 (09:59→21:41)
[2017-10-24] MEDS: MEMANTINE 5 MG TABLET PO SCH ×2 (09:59→21:40)
[2017-10-24] MEDS: cycloSPORINE OPH EMUL 1 VIAL BOTH EYES SCH ×2 (10:00→21:50)
[2017-10-24] MEDS: FUROSEMIDE 20 MG TABLET PO SCH (10:00)
[2017-10-24] MEDS: CALCIUM (CARBONATE)/VITAMIN D 600 MG-400 UNIT TABLET PO SCH ×2 (10:00→21:41)
[2017-10-24] MEDS: FERROUS SULFATE 325 MG TABLET PO SCH ×2 (10:00→21:41)
[2017-10-24 14:43] LABS: ABG Base Excess 3.9 MMOL/L (-2.5-2.5); ABG HCO3 27.8 MMOL/L (20-26); ABG Oxygen Saturation 91.2 % (95-100); ABG PCO2 40.1 MM HG (35-48); ABG PH 7.453 (7.35-7.45); ABG PO2 61.7 MM HG (80-95); ABG TCO2 24.8 MMOL/L (23-27); Allen Test Positive; Pt O2 Delivery Device BIPAP
[2017-10-24 17:12] LABS: Folate 10.4 NG/ML (5.4-24.0)
[2017-10-24] MEDS: DONEPEZIL 10 MG TABLET PO SCH (21:40)
[2017-10-24] MEDS: NORTRIPTYLINE 25 MG CAPSULE PO SCH (21:40)
[2017-10-24] MEDS: MONTELUKAST 10 MG TABLET PO SCH (21:40)
[2017-10-24] MEDS: LATANOPROST 0.005% OPH SOLN 2.5 ML BOTTLE BOTH EYES SCH (21:42)
[2017-10-25] MEDS: MEROPENEM 1,000 MG in SYRINGE 1 EACH IV SCH ×2 (00:11→07:06)
[2017-10-25] MEDS: ALBUTEROL/IPRATROPIUM 3 ML NEB RESP TX SCH ×3 (00:28→14:23)
[2017-10-25] MEDS: INSULIN REGULAR 100 UNIT/ML SUBCUT SCH ×3 (01:54→12:43)
[2017-10-25] MEDS: DEXTROSE 5% NACL 0.22% 1,000 ML IV SCH ×3 (03:12→12:43)
[2017-10-25] MEDS: FAMOTIDINE 20 MG/2 ML VIAL IV SCH (07:05)
[2017-10-25] MEDS: FUROSEMIDE 20 MG TABLET PO SCH (08:13)
[2017-10-25] MEDS: TAMSULOSIN 0.4 MG CAPSULE PO SCH (08:13)
[2017-10-25] MEDS: POLYETHYLENE GLYCOL POWDER 17 GM PACK PO SCH (08:13)
[2017-10-25] MEDS: FERROUS SULFATE 325 MG TABLET PO SCH (08:14)
[2017-10-25] MEDS: DILTIAZEM CD 240 MG CAPSULE PO SCH (08:14)
[2017-10-25] MEDS: BENZONATATE 100 MG CAPSULE PO SCH (08:14)
[2017-10-25] MEDS: CALCIUM (CARBONATE)/VITAMIN D 600 MG-400 UNIT TABLET PO SCH (08:14)
[2017-10-25] MEDS: FINASTERIDE 5 MG TABLET PO SCH (08:14)
[2017-10-25] MEDS: GABAPENTIN 400 MG CAPSULE PO SCH (08:14)
[2017-10-25] MEDS: MEMANTINE 5 MG TABLET PO SCH (08:14)
[2017-10-25] MEDS: cycloSPORINE OPH EMUL 1 VIAL BOTH EYES SCH (08:14)
[2017-10-25] MEDS: levETIRAcetam 500 MG TABLET PO SCH (08:14)
[2017-10-25 15:46] VITALS: BP 115/85
== END 2017-10-25 15:48 | DRG 987 ==
LOC: EDBD → EDUNIT# → N.ED 07:20 → N.EDINP 10:05 → SUATTDRO 10:05 → N.EDINP 14:45 → N.3E 15:04 → N.ICU 10-10 18:12
PROVIDERS: ATTEND Internal Medicine